=== PATIENT | female | born 1985 ===

== ENCOUNTER 2019-01-04 16:37 | Emergency (ER) | payer OTHER ==
[2019-01-04 16:52] VITALS: BP 139/97
--- NOTE | 2019-01-04 17:13 | UC ---
Laceration HPI - HPI Summary HPI Summary: 33 yo female presents with facial laceration after she waslked into object at work NO LOC no nasal trauma no neck pain denies other injury - History Of Current Complaint Chief Complaint: UCHeadInjury Stated Complaint: HEAD INJURY Time Seen by Provider: 01/04/19 17:01 Hx Obtained From: Patient Hx Last Menstrual Period: 10/12/18 Laceration Location: Face Mechanism Of Injury: Blunt Trauma Onset/Duration: Sudden Onset Severity: Mild Pain Intensity: 3 Pain Scale Used: 0-10 Numeric Aggravating Factors: Nothing Head: 1 - superficial curvilinear laceration -no active bleeding 2 - hematoma - Allergies/Home Medications Allergies/Adverse Reactions: Allergies Allergy/AdvReac Type Severity Reaction Status Date / Time erythromycin base Allergy Vomiting Verified 01/04/19 16:51 latex Allergy Hives Verified 01/04/19 16:51 Home Medications: Home Medications Season[place] 1 tab PO DAILY 01/04/19 [History Confirmed 01/04/19] PMH/Surg Hx/FS Hx/Imm Hx Previously Healthy: Yes - Surgical History Surgical History: None Surgery Procedure, Year, and Place: wisdom teeth - Family History Known Family History: Positive: Hypertension - Social History Alcohol Use: Occasionally Substance Use Type: None Smoking Status (MU): Never Smoked Tobacco Review of Systems All Other Systems Reviewed And Are Negative: Yes Constitutional: Positive: Negative Skin: Positive: Negative Eyes: Positive: Negative ENT: Positive: Negative Respiratory: Positive: Negative Cardiovascular: Positive: Negative Gastrointestinal: Positive: Negative Genitourinary: Positive: Negative Motor: Positive: Negative Neurovascular: Positive: Negative Musculoskeletal: Positive: Negative Neurological: Positive: Negative Psychological: Positive: Negative Physical Exam Triage Information Reviewed: Yes Appearance: Well-Appearing, No Pain Distress, Well-Nourished Vital Signs: Initial Vital Signs Temp 98.6 F 01/04/19 16:45 Pulse 94 01/04/19 16:45 Resp 16 01/04/19 16:45 BP 139/97 01/04/19 16:45 Pulse Ox 98 01/04/19 16:45 Vital Signs Reviewed: Yes Eyes: Positive: Conjunctiva Clear ENT: Positive: Hearing grossly normal. Negative: Nasal congestion, Nasal drainage, Trismus, Muffled voice, Hoarse voice Dental Exam: Normal Neck: Positive: Supple, Nontender, No Lymphadenopathy Respiratory: Positive: Lungs clear, Normal breath sounds, No respiratory distress, No accessory muscle use Cardiovascular: Positive: RRR, No Murmur Musculoskeletal: Positive: No Edema Neurological: Positive: Alert, Other: - grossly nonfocal exam, GCS15/15 Psychological Exam: Normal Skin Exam: Other - see image Laceration Repair - Laceration Repair 1 Description: Linear Laceration Size After Repair: Length (cm) - 2.6, Width (mm) - 1, Depth (mm) - 2 Modified For Repair: No Cleansing Completed Via Routine Prep: Yes Irrigation With Pressure Irrigation Device: Yes Closure Material: Skin Adhesive Laceration Course/Dx - Diagnosis Provider Diagnosis: Traumatic hematoma of forehead, Facial laceration Discharge - Sign-Out/Discharge Documenting (check all that apply): Patient Departure All imaging exams completed and their final reports reviewed: No Studies - Discharge Plan Condition: Stable Disposition: HOME Patient Education Materials: Hematoma (ED), Skin Adhesive Care (ED) Referrals: No Primary Care Phys,NOPCP [Primary Care Provider] - Additional Instructions: rest ice NO ointment or cream on glue glue will wear off in about a week - Billing Disposition and Condition Condition: STABLE Disposition: Home
== END 2019-01-04 17:35 | disposition home or self-care (01) ==
LOC: UCEAST 16:37
DX: S01.81XA Laceration without foreign body of other part of head, initial encounter (principal); W22.09XA Striking against other stationary object, initial encounter; Y93.01 Activity, walking, marching and hiking; Y92.89 Other specified places as the place of occurrence of the external cause; Y99.0 Civilian activity done for income or pay; Z88.1 Allergy status to other antibiotic agents; Z91.040 Latex allergy status
CPT/HCPCS: 12001; 12013; 99201; G0463